=== PATIENT | female | born 1975 | race Caucasian/White ===

== ENCOUNTER 2019-06-17 19:17 | Emergency (ER) | payer BC, OTHER ==
[~2019-06-17] VITALS: Ht 149.9 cm; Wt 111.4 kg
[~2019-06-17 19:17] MED LIST: AMOX875T10 PO; COROTSUS OT; DOCU-169 PO; FERR325C PO; LIDOcaine 1% 30ml preserv. free vial ONE; MELA3TAB70 PO; METH500T PO; NAPR375T PO; VENL150C58 PO
[2019-06-17 19:40] VITALS: BP 171/85
== END 2019-06-17 22:29 | disposition home or self-care (01) ==
LOC: ER 19:18
DX: S90.211A Contusion of right great toe with damage to nail, initial encounter (principal); S91.201A Unspecified open wound of right great toe with damage to nail, initial encounter; J44.9 Chronic obstructive pulmonary disease, unspecified; G47.30 Sleep apnea, unspecified; G43.909 Migraine, unspecified, not intractable, without status migrainosus; F32.9 Major depressive disorder, single episode, unspecified; F15.90 Other stimulant use, unspecified, uncomplicated; F10.99 Alcohol use, unspecified with unspecified alcohol-induced disorder; Z86.14 Personal history of Methicillin resistant Staphylococcus aureus infection; Z90.49 Acquired absence of other specified parts of digestive tract; Z98.890 Other specified postprocedural states; Z79.899 Other long term (current) drug therapy; W22.8XXA Striking against or struck by other objects, initial encounter; Y93.89 Activity, other specified; Y92.89 Other specified places as the place of occurrence of the external cause; Y99.8 Other external cause status; Y90.9 Presence of alcohol in blood, level not specified
CPT/HCPCS: 11740; 99283; J2001; 99284

== ENCOUNTER 2020-08-11 00:05 | Emergency (ER) | payer BC ==
[~2020-08-11] VITALS: Ht 149.9 cm; Wt 118.0 kg
[~2020-08-11 00:05] MED LIST changes: +DICY10CA88 PO; -LIDOcaine 1% 30ml preserv. free vial ONE
[2020-08-11 00:30] VITALS: BP 125/74
[2020-08-11] MEDS ORDERED: acetaminophen 325mg tablet PO ONE (01:50)
== END 2020-08-11 02:49 | disposition home or self-care (01) ==
LOC: ER 00:06
DX: M25.562 Pain in left knee (principal); M25.561 Pain in right knee; G43.909 Migraine, unspecified, not intractable, without status migrainosus; J44.9 Chronic obstructive pulmonary disease, unspecified; F32.9 Major depressive disorder, single episode, unspecified; F15.90 Other stimulant use, unspecified, uncomplicated; Z86.14 Personal history of Methicillin resistant Staphylococcus aureus infection; Z90.49 Acquired absence of other specified parts of digestive tract; Z98.890 Other specified postprocedural states; Z72.89 Other problems related to lifestyle; Z79.2 Long term (current) use of antibiotics; Z79.899 Other long term (current) drug therapy
CPT/HCPCS: 73564; 99284

== ENCOUNTER 2020-12-23 13:51 | Emergency (ER) | payer BC ==
[~2020-12-23] VITALS: Ht 149.9 cm; Wt 118.0 kg
[2020-12-23 14:24] VITALS: BP 125/80
== END 2020-12-23 17:22 | disposition home or self-care (01) ==
LOC: ER 15:30
DX: R53.83 Other fatigue (principal); Z20.822 Contact with and (suspected) exposure to COVID-19; G43.909 Migraine, unspecified, not intractable, without status migrainosus; J44.9 Chronic obstructive pulmonary disease, unspecified; G47.39 Other sleep apnea; F15.90 Other stimulant use, unspecified, uncomplicated; Z86.14 Personal history of Methicillin resistant Staphylococcus aureus infection; Z72.89 Other problems related to lifestyle; Z90.49 Acquired absence of other specified parts of digestive tract; Z98.891 History of uterine scar from previous surgery; Z98.890 Other specified postprocedural states; Z79.899 Other long term (current) drug therapy; Z79.2 Long term (current) use of antibiotics
CPT/HCPCS: 87635; 99283; C9803

== ENCOUNTER 2022-11-03 17:14 | Emergency (ER) | payer BC, MEDICAID ==
[~2022-11-03] VITALS: Ht 149.9 cm; Wt 133.2 kg
[2022-11-03 17:51] LABS: BASOPHILS # (AUTO) 0.1 X10'3 (0-0.2); BASOPHILS % (AUTO) 0.6 % (0-1); EOSINOPHILS # (AUTO) 0.1 X10'3 (0-0.9); EOSINOPHILS % (AUTO) 1.1 % (0-6); HEMATOCRIT 42.3 % (35.0-45.0); HEMOGLOBIN 13.8 g/dl (12.0-16.0); LYMPHOCYTES % (AUTO) 30.9 % (21-51); MEAN CORPUSCULAR HEMOGLOBIN 28.1 PG (27.0-31.0); MEAN CORPUSCULAR HGB CONC 32.7 g/dL (33.0-36.5); MEAN CORPUSCULAR VOLUME 85.8 FL (78-98); MEAN PLATELET VOLUME 7.6 FL (7.4-10.4); MONOCYTES # (AUTO) 1.1 X10'3 (0-0.9); MONOCYTES % (AUTO) 8.3 % (2-12); NEUTROPHILS # (AUTO) 7.7 X10'3 (1.8-7.7); NEUTROPHILS % (AUTO) 59.1 % (42-75); PLATELET COUNT 332 X10'3 (140-440); RED BLOOD COUNT 4.92 X10'6 (4.20-5.60); RED CELL DISTRIBUTION WIDTH 14.7 % (11.5-14.5)
[2022-11-03 18:00] LABS: ALANINE AMINOTRANSFERASE 19 U/L (12-78); ALBUMIN 3.7 G/DL (3.4-5.0); ALBUMIN/GLOBULIN RATIO 0.9 (1.1-1.5); ALKALINE PHOSPHATASE 94 IU/L (46-116); ANION GAP 9 (8-16); ASPARTATE AMINO TRANSFERASE 13 U/L (10-37); BILIRUBIN,TOTAL 0.4 MG/DL (0.1-1.0); BLOOD UREA NITROGEN 10 MG/DL (7-18); CALCIUM 9.3 MG/DL (8.5-10.1); CHLORIDE 107 MMOL/L (99-107); CREATININE 0.83 MG/DL (0.40-0.90); GLUCOSE 127 MG/DL (70-104); LIPASE 67 U/L (73-393); POTASSIUM 4.1 MMOL/L (3.5-5.1); SODIUM 139 MMOL/L (135-145); TOTAL CARBON DIOXIDE 22.6 MMOL/L (24-32); TOTAL PROTEIN 7.6 G/DL (6.4-8.2); eGFR 74 ML/MIN
[2022-11-03] MEDS ORDERED: normal saline 1000ML IV soln IVB ONE (21:00)
[2022-11-03] MEDS ORDERED: morphine 4 MG/ML inj SYRINge IV PRN (21:00)
[2022-11-03] MEDS ORDERED: ondansetron/PF 4mg/2ml inj IV ONE (21:00)
[2022-11-03] MEDS ORDERED: ONDA4TAB12 PO (22:05)
[2022-11-03] MEDS ORDERED: SULF1TAB49 PO (22:05)
[2022-11-03] MEDS ORDERED: HYDR-3965 PO (22:05)
[2022-11-03 22:28] VITALS: BP 142/95
== END 2022-11-03 22:30 | disposition home or self-care (01) ==
LOC: ER 17:16
DX: K52.89 Other specified noninfective gastroenteritis and colitis (principal); J44.9 Chronic obstructive pulmonary disease, unspecified; G43.909 Migraine, unspecified, not intractable, without status migrainosus; F15.10 Other stimulant abuse, uncomplicated; Z86.14 Personal history of Methicillin resistant Staphylococcus aureus infection; Z79.899 Other long term (current) drug therapy; Z79.1 Long term (current) use of non-steroidal anti-inflammatories (NSAID)
CPT/HCPCS: 36415; 74176; 80053; 83690; 85025; 96361; 96374; 99285; J2270; J2405

== ENCOUNTER 2023-04-14 20:11 | Emergency (ER) | payer MEDICAID ==
[~2023-04-14] VITALS: Ht 149.9 cm; Wt 128.6 kg
[~2023-04-14 20:11] MED LIST changes: +HYDR-3965 PO; +ONDA4TAB12 PO
[2023-04-14 20:25] LABS: HEMATOCRIT 43.9 % (35.0-45.0); HEMOGLOBIN 14.5 g/dl (12.0-16.0); MEAN CORPUSCULAR HEMOGLOBIN 28.6 PG (27.0-31.0); MEAN CORPUSCULAR HGB CONC 33.1 g/dL (33.0-36.5); MEAN CORPUSCULAR VOLUME 86.4 FL (78-98); PLATELET COUNT 347 X10'3 (140-440); RED BLOOD COUNT 5.08 X10'6 (4.20-5.60); RED CELL DISTRIBUTION WIDTH 14.5 % (11.5-14.5); WHITE BLOOD COUNT 17.1 X10'3 (4.5-11.0)
[2023-04-14 20:26] LABS: BASOPHILS # (AUTO) 0.1 X10'3 (0-0.2); BASOPHILS % (AUTO) 0.5 % (0-1); EOSINOPHILS # (AUTO) 0.3 X10'3 (0-0.9); EOSINOPHILS % (AUTO) 1.5 % (0-6); LYMPHOCYTES # (AUTO) 5.1 X10'3 (1.1-4.8); LYMPHOCYTES % (AUTO) 29.7 % (21-51); MEAN PLATELET VOLUME 7.6 FL (7.4-10.4); MONOCYTES # (AUTO) 1.4 X10'3 (0-0.9); MONOCYTES % (AUTO) 8.4 % (2-12); NEUTROPHILS # (AUTO) 10.2 X10'3 (1.8-7.7); NEUTROPHILS % (AUTO) 59.9 % (42-75)
[2023-04-14 20:48] LABS: ALANINE AMINOTRANSFERASE 23 U/L (12-78); ALBUMIN 3.9 G/DL (3.4-5.0); ALKALINE PHOSPHATASE 100 IU/L (46-116); ANION GAP 11 (8-16); ASPARTATE AMINO TRANSFERASE 12 U/L (10-37); BILIRUBIN,TOTAL 0.5 MG/DL (0.1-1.0); BLOOD UREA NITROGEN 10 MG/DL (7-18); BUN/CREATININE RATIO 9.9 (10.0-20.0); CALCIUM 9.3 MG/DL (8.5-10.1); CHLORIDE 107 MMOL/L (99-107); CREATININE 1.01 MG/DL (0.40-0.90); GLUCOSE 84 MG/DL (70-104); POTASSIUM 3.3 MMOL/L (3.5-5.1); PRO BRAIN NATRIURETIC PEPTIDE < 30 PG/ML (0-125); SODIUM 143 MMOL/L (135-145); TOTAL CARBON DIOXIDE 25.1 MMOL/L (24-32); TOTAL PROTEIN 7.7 G/DL (6.4-8.2); eCRCL 48 ML/MIN; eGFR 59 ML/MIN
[2023-04-14 22:20] LABS: MAGNESIUM 2.3 MG/DL (1.5-2.4)
[2023-04-14 22:43] VITALS: BP 158/95; PULSE 119; RESP 16; TEMP 97.8; O2SAT 99
[2023-04-15] MEDS ORDERED: potassium Cl 20 mEq SR tablet PO STA (00:19)
== END 2023-04-15 00:40 | disposition home or self-care (01) ==
LOC: ER 20:12
DX: R00.2 Palpitations (principal); J44.9 Chronic obstructive pulmonary disease, unspecified; F32.A Depression, unspecified; F15.10 Other stimulant abuse, uncomplicated; G43.909 Migraine, unspecified, not intractable, without status migrainosus; Z79.899 Other long term (current) drug therapy
CPT/HCPCS: 36415; 71045; 80053; 83735; 83880; 84484; 85025; 93005; 99285

== ENCOUNTER 2023-06-12 18:15 | Emergency (ER) | payer MEDICAID ==
[~2023-06-12] VITALS: Ht 149.9 cm; Wt 126.1 kg
[2023-06-12] MEDS ORDERED: ketorolac trometh inj. 60 MG/2 ML VIAL IM ONE (20:20)
[2023-06-12] MEDS ORDERED: clindamycin 150mg capsule PO STA (20:23)
[2023-06-12] MEDS ORDERED: IBUP-1984 PO (20:38)
[2023-06-12] MEDS ORDERED: CLIN-97 PO (20:38)
[2023-06-12 21:39] VITALS: BP 134/78; PULSE 76; RESP 18; TEMP 97.9; O2SAT 98
== END 2023-06-12 21:42 | disposition home or self-care (01) ==
LOC: ER 18:15
DX: M10.072 Idiopathic gout, left ankle and foot (principal); L03.116 Cellulitis of left lower limb
CPT/HCPCS: 73630; 96372; 99283; J1885

== ENCOUNTER 2023-08-07 17:29 | Emergency (ER) | payer MEDICAID ==
[~2023-08-07] VITALS: Ht 149.9 cm; Wt 124.2 kg
[~2023-08-07 17:29] MED LIST changes: +CLIN-97 PO
[2023-08-07 17:32] VITALS: TEMP 98
[2023-08-07] MEDS: methylnaltrexone br 12mg/0.6ml inj***SubQ only SQ ONE (18:36)
[2023-08-07 18:54] LABS: URINE HCG NEGATIVE (NEG)
[2023-08-07 21:15] VITALS: BP 162/98; PULSE 101; RESP 16; O2SAT 95
== END 2023-08-07 21:17 | disposition home or self-care (01) ==
LOC: ER 17:29
DX: K59.00 Constipation, unspecified (principal); J44.9 Chronic obstructive pulmonary disease, unspecified; F32.A Depression, unspecified; Z90.49 Acquired absence of other specified parts of digestive tract; Z98.890 Other specified postprocedural states; F10.90 Alcohol use, unspecified, uncomplicated; F15.90 Other stimulant use, unspecified, uncomplicated; Z79.2 Long term (current) use of antibiotics; Z79.899 Other long term (current) drug therapy
CPT/HCPCS: 74176; 81025; 96372; 99285; J2212

== ENCOUNTER 2023-10-02 13:09 | Emergency (ER) | payer MEDICAID ==
[~2023-10-02] VITALS: Ht 149.9 cm; Wt 107.3 kg
[2023-10-02 13:34] LABS: BASOPHILS # (AUTO) 0.1 X10'3 (0-0.2); BASOPHILS % (AUTO) 0.6 % (0-1); EOSINOPHILS # (AUTO) 0.1 X10'3 (0-0.9); HEMATOCRIT 41.4 % (35.0-45.0); HEMOGLOBIN 13.5 g/dl (12.0-16.0); LYMPHOCYTES % (AUTO) 28.4 % (21-51); MEAN CORPUSCULAR HEMOGLOBIN 28.4 PG (27.0-31.0); MEAN CORPUSCULAR HGB CONC 32.6 g/dL (33.0-36.5); MEAN PLATELET VOLUME 7.8 FL (7.4-10.4); MONOCYTES # (AUTO) 0.8 X10'3 (0-0.9); MONOCYTES % (AUTO) 7.4 % (2-12); NEUTROPHILS # (AUTO) 6.7 X10'3 (1.8-7.7); NEUTROPHILS % (AUTO) 62.6 % (42-75); PLATELET COUNT 321 X10'3 (140-440); RED BLOOD COUNT 4.76 X10'6 (4.20-5.60); RED CELL DISTRIBUTION WIDTH 14.5 % (11.5-14.5); WHITE BLOOD COUNT 10.7 X10'3 (4.5-11.0)
[2023-10-02] MEDS ORDERED: HYDR-3972 PO (13:56)
[2023-10-02] MEDS ORDERED: BUSP15TA3 PO (13:56)
[2023-10-02] MEDS ORDERED: TIRZ10PE INJ (13:56)
[2023-10-02] MEDS ORDERED: SULF500T59 PO (13:56)
[2023-10-02] MEDS ORDERED: LORA10TA7 PO (13:56)
[2023-10-02] MEDS ORDERED: DOXY50CA2 PO (13:56)
[2023-10-02] MEDS ORDERED: CARI1.5C PO (13:56)
[2023-10-02] MEDS ORDERED: QUET25TA36 PO (13:56)
[2023-10-02] MEDS ORDERED: PROG100C11 PO (13:56)
[2023-10-02] MEDS ORDERED: CARV6.253 PO (13:56)
[2023-10-02] MEDS ORDERED: OMEP20CA16 PO (13:56)
[2023-10-02] MEDS ORDERED: TOP100T PO (13:56)
[2023-10-02] MEDS ORDERED: PROG200C11 PO (13:56)
[2023-10-02 14:05] LABS: ANION GAP 7 (8-16); BLOOD UREA NITROGEN 13 MG/DL (7-18); BUN/CREATININE RATIO 14.1 (10.0-20.0); CALCIUM 9.8 MG/DL (8.5-10.1); CHLORIDE 111 MMOL/L (99-107); CREATININE 0.92 MG/DL (0.40-0.90); GLUCOSE 106 MG/DL (70-104); POTASSIUM 3.8 MMOL/L (3.5-5.1); PRO BRAIN NATRIURETIC PEPTIDE 34 PG/ML (0-125); SODIUM 142 MMOL/L (135-145); TOTAL CARBON DIOXIDE 23.7 MMOL/L (24-32); eCRCL 52 ML/MIN; eGFR 66 ML/MIN
[2023-10-02] MEDS ORDERED: ketorolac trometh. 30mg/ml inj. IM ONE (16:30)
[2023-10-02] MEDS: LORazepam 0.5 MG tablet PO PRN (16:45)
[2023-10-02] MEDS: ketorolac tromethamine 15mg/ml inj. IM ONE (16:49)
[2023-10-02] MEDS: cloNIDine 0.1 mg tablet PO ONE ×2 (17:02→18:02)
[2023-10-02] MEDS: oxyCODONE IR 5mg (immed. release) tablet PO ONE (18:03)
[2023-10-02] MEDS ORDERED: CLON0.1T2 PO (18:05)
[2023-10-02 18:24] VITALS: BP 144/80; PULSE 91; RESP 17; TEMP 98.3; O2SAT 97
== END 2023-10-02 18:25 | disposition home or self-care (01) ==
LOC: ER 13:09
DX: M54.6 Pain in thoracic spine (principal); F41.9 Anxiety disorder, unspecified; G43.909 Migraine, unspecified, not intractable, without status migrainosus; J44.9 Chronic obstructive pulmonary disease, unspecified; F15.90 Other stimulant use, unspecified, uncomplicated; Z79.899 Other long term (current) drug therapy; Z79.1 Long term (current) use of non-steroidal anti-inflammatories (NSAID); Z79.2 Long term (current) use of antibiotics; Z90.49 Acquired absence of other specified parts of digestive tract; Z98.890 Other specified postprocedural states
CPT/HCPCS: 36415; 71045; 80048; 83880; 84484; 85025; 93005; 96372; 99285; J1885

== ENCOUNTER 2023-10-05 11:35 | Emergency (ER) | payer MEDICAID ==
[~2023-10-05] VITALS: Ht 149.9 cm; Wt 114.0 kg
[~2023-10-05 11:35] MED LIST changes: -AMOX875T10 PO; +BUSP15TA3 PO; +CARI1.5C PO; +CARV6.253 PO; -CLIN-97 PO; +CLON0.1T2 PO; -COROTSUS OT; -DICY10CA88 PO; -DOCU-169 PO; +DOXY50CA2 PO; -FERR325C PO; -HYDR-3965 PO; +HYDR-3972 PO; +LORA10TA7 PO; -MELA3TAB70 PO; -METH500T PO; -NAPR375T PO; +OMEP20CA16 PO; -ONDA4TAB12 PO; +PROG100C11 PO; +PROG200C11 PO; +QUET25TA36 PO; +SULF500T59 PO; +TIRZ10PE INJ; +TOP100T PO; -VENL150C58 PO
[2023-10-05 12:13] LABS: BASOPHILS % (AUTO) 0.4 % (0-1); EOSINOPHILS # (AUTO) 0.1 X10'3 (0-0.9); EOSINOPHILS % (AUTO) 0.6 % (0-6); HEMATOCRIT 39.6 % (35.0-45.0); HEMOGLOBIN 13.2 g/dl (12.0-16.0); LYMPHOCYTES # (AUTO) 2.9 X10'3 (1.1-4.8); LYMPHOCYTES % (AUTO) 23.9 % (21-51); MEAN CORPUSCULAR HEMOGLOBIN 28.6 PG (27.0-31.0); MEAN CORPUSCULAR HGB CONC 33.3 g/dL (33.0-36.5); MEAN CORPUSCULAR VOLUME 86.1 FL (78-98); MEAN PLATELET VOLUME 7.7 FL (7.4-10.4); MONOCYTES # (AUTO) 0.9 X10'3 (0-0.9); MONOCYTES % (AUTO) 7.7 % (2-12); NEUTROPHILS # (AUTO) 8.2 X10'3 (1.8-7.7); NEUTROPHILS % (AUTO) 67.4 % (42-75); PLATELET COUNT 294 X10'3 (140-440); RED CELL DISTRIBUTION WIDTH 14.2 % (11.5-14.5); WHITE BLOOD COUNT 12.1 X10'3 (4.5-11.0)
[2023-10-05 12:35] LABS: ANION GAP 12 (8-16); BLOOD UREA NITROGEN 12 MG/DL (7-18); BUN/CREATININE RATIO 13.8 (10.0-20.0); CALCIUM 9.3 MG/DL (8.5-10.1); CHLORIDE 109 MMOL/L (99-107); CREATININE 0.87 MG/DL (0.40-0.90); GLUCOSE 109 MG/DL (70-104); POTASSIUM 3.6 MMOL/L (3.5-5.1); PRO BRAIN NATRIURETIC PEPTIDE 32 PG/ML (0-125); SODIUM 144 MMOL/L (135-145); TOTAL CARBON DIOXIDE 23.3 MMOL/L (24-32); eGFR 70 ML/MIN
[2023-10-05] MEDS ORDERED: ketorolac trometh. 30mg/ml inj. IV ONE (12:55)
[2023-10-05] MEDS ORDERED: ketorolac tromethamine 15mg/ml inj. IV ONE (13:00)
[2023-10-05 13:13] LABS: D-DIMER 1.09 MG/L FEU (0-0.50)
[2023-10-05] MEDS: oxyCODONE/APAP 10/325mg tablet PO ONE (13:24)
[2023-10-05] MEDS: ketorolac tromethamine 15mg/ml inj. IM ONE (13:25)
[2023-10-05 13:37] VITALS: BP 137/75
[2023-10-05] MEDS ORDERED: iohexol 350MG/ML 100ml bottle IV ONE ×2 (13:41→13:42)
[2023-10-05 15:32] VITALS: PULSE 95; RESP 14; TEMP 98.6; O2SAT 96
== END 2023-10-05 15:35 | disposition home or self-care (01) ==
LOC: ER 11:35
DX: R07.89 Other chest pain (principal); Z79.899 Other long term (current) drug therapy; Z79.1 Long term (current) use of non-steroidal anti-inflammatories (NSAID); Z79.2 Long term (current) use of antibiotics
CPT/HCPCS: 36415; 71045; 71270; 80048; 83880; 84484; 85025; 85379; 93005; 96372; 99285; J1885; J3490; Q9967

== ENCOUNTER 2023-10-08 09:21 | Day surgery (SDC) | payer MEDICAID ==
[2023-10-07 15:06] LABS: BASOPHILS # (AUTO) 0.1 X10'3 (0-0.2); BASOPHILS % (AUTO) 0.5 % (0-1); EOSINOPHILS # (AUTO) 0.1 X10'3 (0-0.9); EOSINOPHILS % (AUTO) 0.4 % (0-6); HEMATOCRIT 42.1 % (35.0-45.0); HEMOGLOBIN 13.9 g/dl (12.0-16.0); LYMPHOCYTES # (AUTO) 4.5 X10'3 (1.1-4.8); LYMPHOCYTES % (AUTO) 31.5 % (21-51); MEAN CORPUSCULAR HEMOGLOBIN 28.2 PG (27.0-31.0); MEAN CORPUSCULAR HGB CONC 32.9 g/dL (33.0-36.5); MEAN CORPUSCULAR VOLUME 85.7 FL (78-98); MEAN PLATELET VOLUME 8.1 FL (7.4-10.4); MONOCYTES # (AUTO) 1.3 X10'3 (0-0.9); MONOCYTES % (AUTO) 9.1 % (2-12); NEUTROPHILS # (AUTO) 8.4 X10'3 (1.8-7.7); NEUTROPHILS % (AUTO) 58.5 % (42-75); PLATELET COUNT 333 X10'3 (140-440); RED BLOOD COUNT 4.92 X10'6 (4.20-5.60); RED CELL DISTRIBUTION WIDTH 14.1 % (11.5-14.5); WHITE BLOOD COUNT 14.4 X10'3 (4.5-11.0)
[2023-10-07 15:12] LABS: ALBUMIN 4.2 G/DL (3.4-5.0); ANION GAP 13 (8-16); BLOOD UREA NITROGEN 11 MG/DL (7-18); BUN/CREATININE RATIO 10.8 (10.0-20.0); CALCIUM 10.2 MG/DL (8.5-10.1); CHLORIDE 105 MMOL/L (99-107); CREATININE 1.02 MG/DL (0.40-0.90); GLUCOSE 87 MG/DL (70-104); POTASSIUM 3.4 MMOL/L (3.5-5.1); SODIUM 140 MMOL/L (135-145); TOTAL CARBON DIOXIDE 22.1 MMOL/L (24-32); eGFR 58 ML/MIN
[2023-10-07 15:16] LABS: APTT 24 SECONDS (22-32); PROTHROMBIN TIME 10.5 SECONDS (9.0-12.0)
[~2023-10-08] VITALS: Ht 149.9 cm; Wt 118.1 kg
[2023-10-08] VITALS (12 sets, daily range): BP systolic 119–179; BP diastolic 61–107; PULSE 74–92; RESP 12–15; TEMP 98.1; O2SAT 94–98
[2023-10-08] MEDS ORDERED: LIDOcaine 1% (10mg/ml) 2ml vial ONE ×2 (09:43→09:54)
[2023-10-08] MEDS ORDERED: verapamil 2.5 mg/ml inj IV ONE (09:43)
[2023-10-08] MEDS ORDERED: midazolam 1 mg/ML 2ml injection ONE ×2 (09:43→12:06)
[2023-10-08] MEDS ORDERED: fentaNYL/PF 50MCG/1 ML 2ML syringe ONE (09:44)
[2023-10-08] MEDS ORDERED: heparin 1,000unit/ml 10ml vial 10 ML ONE (09:44)
[2023-10-08] MEDS ORDERED: iohexol 300mg/ml 100ml inj. ONE (09:44)
[2023-10-08] MEDS ORDERED: iohexol 350 MG/ML 50ML vial IV ONE (09:44)
[2023-10-08] MEDS ORDERED: iohexol 350MG/ML 100ml bottle IV ONE (09:51)
[2023-10-08] MEDS ORDERED: nitroGLYCERIN 500mcg/5mL D5W 5 ML IV ONE (09:53)
[2023-10-08] MEDS ORDERED: TIRZ7.5P SQ (10:18)
[2023-10-08] MEDS ORDERED: VARE1TAB24 PO (10:18)
[2023-10-08] MEDS ORDERED: RIZA-5 PO (10:18)
[2023-10-08] MEDS ORDERED: FURO20TA4 PO (10:18)
[2023-10-08] MEDS ORDERED: POTA-188 PO (10:18)
[2023-10-08] MEDS ORDERED: DOXY50TA3 PO (10:18)
[2023-10-08] MEDS ORDERED: TIZA-205 PO (10:18)
[2023-10-08] MEDS ORDERED: SENN8.6T19 PO (10:20)
[2023-10-08] MEDS ORDERED: CLON-473 PO (10:20)
[2023-10-08] MEDS ORDERED: LIDOcaine 1% 30ml preserv. free vial ONE (11:02)
[2023-10-08] MEDS ORDERED: diphenhydrAMINE 50 mg/ml inj ONE (11:20)
[2023-10-08] MEDS ORDERED: heparin 1,000 UNITS/NS 500ml 500 ML ONE (11:29)
[2023-10-08 12:54] LABS: ISTAT HGB MIX 11.9 g/dl (12.0-16.0); ISTAT Hct MIX 35 %PCV (35-45); ISTAT O2 SATURATION MIX VENOUS 70 % (60-80); ISTAT SOURCE BLNK
[2023-10-08 12:54] LABS: ISTAT HGB MIX 11.9 g/dl (12.0-16.0); ISTAT Hct MIX 35 %PCV (35-45); ISTAT O2 SATURATION MIX VENOUS 94 % (60-80); ISTAT SOURCE BLNK
[2023-10-08] MEDS: HYDROcodone/acetaminophen 10/325mg tab PO PRN (13:32)
== END 2023-10-08 16:50 | disposition home or self-care (01) ==
LOC: SSTAY O 09:21
PROVIDERS: ATTEND Internal Medicine Cardiovascular Disease
DX: R94.39 Abnormal result of other cardiovascular function study (principal); I25.10 Atherosclerotic heart disease of native coronary artery without angina pectoris; E66.01 Morbid (severe) obesity due to excess calories; E03.9 Hypothyroidism, unspecified; E78.5 Hyperlipidemia, unspecified; F31.9 Bipolar disorder, unspecified; G47.30 Sleep apnea, unspecified; Z79.2 Long term (current) use of antibiotics; Z79.891 Long term (current) use of opiate analgesic; Z79.899 Other long term (current) drug therapy; Z90.49 Acquired absence of other specified parts of digestive tract; Z98.891 History of uterine scar from previous surgery; Z98.890 Other specified postprocedural states; Z68.43 Body mass index [BMI] 50.0-59.9, adult; Z82.49 Family history of ischemic heart disease and other diseases of the circulatory system
CPT/HCPCS: 36415; 76937; 80048; 82803; 85014; 85025; 85610; 85730; 93005; 93460; 99152; 99153; A6258; C1729; J1200; J1644; J2250; J3010; J3490; J7030; J7040; Q9967; A6402; A6449; C1725; C1751; C1769; C1894

== ENCOUNTER 2023-10-12 20:12 | Inpatient (IN) | payer MEDICAID ==
[~2023-10-12] VITALS: Ht 149.9 cm; Wt 118.2 kg
[~2023-10-12 20:12] MED LIST changes: -CARI1.5C PO; -CARV6.253 PO; +CLON-473 PO; -CLON0.1T2 PO; -DOXY50CA2 PO; +DOXY50TA3 PO; +FURO20TA4 PO; +POTA-188 PO; -PROG200C11 PO; -QUET25TA36 PO; +RIZA-5 PO; +SENN8.6T19 PO; -TIRZ10PE INJ; +TIRZ7.5P SQ; +TIZA-205 PO; +VARE1TAB24 PO
[2023-10-12 22:41] LABS: APTT 26 SECONDS (22-32); PROTHROMBIN TIME 10.9 SECONDS (9.0-12.0)
[2023-10-12 22:43] LABS: HCG SERUM QL NEGATIVE
[2023-10-12 22:44] LABS: ALANINE AMINOTRANSFERASE 34 U/L (12-78); ALKALINE PHOSPHATASE 94 IU/L (46-116); ANION GAP 11 (8-16); ASPARTATE AMINO TRANSFERASE 23 U/L (10-37); BILIRUBIN,TOTAL 0.9 MG/DL (0.1-1.0); BLOOD UREA NITROGEN 16 MG/DL (7-18); BUN/CREATININE RATIO 16.2 (10.0-20.0); CALCIUM 9.6 MG/DL (8.5-10.1); CHLORIDE 106 MMOL/L (99-107); CREATININE 0.99 MG/DL (0.40-0.90); GLUCOSE 86 MG/DL (70-104); POTASSIUM 3.6 MMOL/L (3.5-5.1); SODIUM 139 MMOL/L (135-145); TOTAL CARBON DIOXIDE 22.1 MMOL/L (24-32); TOTAL PROTEIN 8.1 G/DL (6.4-8.2); eCRCL 48 ML/MIN; eGFR 60 ML/MIN
[2023-10-12] MEDS ORDERED: iohexol 350MG/ML 100ml bottle IV ONE (22:49)
[2023-10-12 22:55] LABS: BASOPHILS # (AUTO) 0.1 X10'3 (0-0.2); BASOPHILS % (AUTO) 0.5 % (0-1); EOSINOPHILS # (AUTO) 0.3 X10'3 (0-0.9); EOSINOPHILS % (AUTO) 2.2 % (0-6); HEMATOCRIT 38.9 % (35.0-45.0); HEMOGLOBIN 12.9 g/dl (12.0-16.0); LYMPHOCYTES # (AUTO) 2.5 X10'3 (1.1-4.8); LYMPHOCYTES % (AUTO) 20.5 % (21-51); MEAN CORPUSCULAR HEMOGLOBIN 28.4 PG (27.0-31.0); MEAN CORPUSCULAR HGB CONC 33.1 g/dL (33.0-36.5); MEAN CORPUSCULAR VOLUME 85.9 FL (78-98); MEAN PLATELET VOLUME 8.4 FL (7.4-10.4); MONOCYTES # (AUTO) 1.2 X10'3 (0-0.9); MONOCYTES % (AUTO) 9.9 % (2-12); NEUTROPHILS # (AUTO) 8.1 X10'3 (1.8-7.7); NEUTROPHILS % (AUTO) 66.9 % (42-75); PLATELET COUNT 207 X10'3 (140-440); PRO BRAIN NATRIURETIC PEPTIDE 735 PG/ML (0-125); RED BLOOD COUNT 4.53 X10'6 (4.20-5.60); RED CELL DISTRIBUTION WIDTH 14.1 % (11.5-14.5); THYROID STIMULATING HORMONE 8.68 ulU/ml (0.34-4.50); WHITE BLOOD COUNT 12.1 X10'3 (4.5-11.0)
[2023-10-12] MEDS ORDERED: enoxaparin 100mg/ml syringe SUBCUT ONE (23:05)
[2023-10-12] MEDS ORDERED: magnesium 2GM in 50ml NS 50 ML IV PRN (23:10)
[2023-10-12] MEDS ORDERED: potassium Cl 20 mEq SR tablet PO PRN (23:10)
[2023-10-12] MEDS ORDERED: acetaminophen 325mg tablet PO PRN (23:10)
[2023-10-12] MEDS ORDERED: magnesium hydroxide 30ml (MOM) UD suspension PO PRN (23:10)
[2023-10-12] MEDS ORDERED: magnesium 4gm in 100ml NS 100 ML IV PRN (23:10)
[2023-10-12] MEDS ORDERED: magnesium Cl slow-release 64mg tablet PO PRN (23:10)
[2023-10-12] MEDS ORDERED: ondansetron/PF 4mg/2ml inj IV PRN (23:10)
[2023-10-12] MEDS ORDERED: ondansetron 4mg rapidly disintigrating tab PO PRN (23:10)
[2023-10-12] MEDS ORDERED: potassium Cl 40MEQ/1/2NS 520ml 520 ML IV PRN (23:10)
[2023-10-12] MEDS ORDERED: mag hydrox/Alum hydrox/simeth 30ml oral suspension PO PRN (23:10)
[2023-10-13] MEDS ORDERED: HYDROcodone/acetaminophen 10/325mg tab PO PRN (00:05)
[2023-10-13 00:09] LABS: D-DIMER 9.02 MG/L FEU (0-0.50)
[2023-10-13] MEDS ORDERED: heparin 10,000 units/1 ML INJ IV PRN ×2 (00:20→13:10)
[2023-10-13] MEDS ORDERED: heparin 10,000 units/1 ML INJ IV ONE ×2 (00:20→13:10)
[2023-10-13] MEDS ORDERED: RIZATRIPTAN BENZOATE 10 MG PO PRN (00:40)
[2023-10-13] MEDS ORDERED: iohexol 350MG/ML 100ml bottle IV ONE (00:42)
[2023-10-13] MEDS: cloNIDine 0.1 mg tablet PO SCH (01:05)
[2023-10-13] MEDS: HYDROcodone/acetaminophen 10/325mg tab PO PRN (01:05)
[2023-10-13] MEDS: heparin 10,000 units/1 ML INJ IV ONE (01:19)
[2023-10-13] MEDS: heparin 25,000 UNIT/250ml bag 250 ML IV PRN ×2 (01:22→22:34)
[2023-10-13] MEDS: MESSAGE TO NURSING IV ONE (01:23)
[2023-10-13 02:20] LABS: BILIRUBIN,URINE NEGATIVE (Neg); CLARITY,URINE CLEAR (Clear); COLOR,URINE YELLOW (Yellow); GLUCOSE, URINE NEGATIVE (Neg); KETONES,URINE TRACE mg/dl (Neg); LEUKOCYTE ESTERASE ,URINE NEGATIVE (Neg); NITRITES, URINE NEGATIVE (Neg); OCCULT BLOOD,URINE TRACE-INTACT (Neg); PH,URINE 6.5 (4.8-8.0); PROTEIN,URINE NEGATIVE (Neg); UROBILINOGEN,URINE 0.2 E.U/dL (0.2-1.0)
[2023-10-13 02:26] LABS: SQUAMOUS EPITHELIAL CELL,UR MANY /LPF (FEW); UA COLLECTION TYPE URINAL
[2023-10-13 02:28] LABS: BACTERIA,URINE FEW /HPF (Neg); RBC,URINE NONE SEEN /HPF (0-2)
[2023-10-13] MEDS: busPIRone 15mg tablet PO SCH (02:39)
[2023-10-13] MEDS: PERFLUTREN PROTEIN-A MICROSPHR (Optison) 0.22 MG/ML 3ML VIAL IV ONE (03:15)
[2023-10-13] MEDS ORDERED: enoxaparin 100mg/ml syringe SUBCUT SCH (08:00)
[2023-10-13] MEDS: K and/or MAG REPLACEMENT MC SCH (08:00)
[2023-10-13 08:49] VITALS: BP 156/81; PULSE 90; RESP 20; TEMP 98.5; O2SAT 95
[2023-10-13 09:55] LABS: BASOPHILS % (AUTO) 0.5 % (0-1); EOSINOPHILS # (AUTO) 0.3 X10'3 (0-0.9); EOSINOPHILS % (AUTO) 2.8 % (0-6); HEMATOCRIT 38.5 % (35.0-45.0); HEMOGLOBIN 12.7 g/dl (12.0-16.0); LYMPHOCYTES # (AUTO) 1.3 X10'3 (1.1-4.8); LYMPHOCYTES % (AUTO) 14.3 % (21-51); MEAN CORPUSCULAR HEMOGLOBIN 28.6 PG (27.0-31.0); MEAN CORPUSCULAR VOLUME 86.6 FL (78-98); MEAN PLATELET VOLUME 8.4 FL (7.4-10.4); MONOCYTES # (AUTO) 1.1 X10'3 (0-0.9); MONOCYTES % (AUTO) 12.2 % (2-12); NEUTROPHILS # (AUTO) 6.3 X10'3 (1.8-7.7); NEUTROPHILS % (AUTO) 70.2 % (42-75); PLATELET COUNT 199 X10'3 (140-440); RED BLOOD COUNT 4.45 X10'6 (4.20-5.60); RED CELL DISTRIBUTION WIDTH 14.4 % (11.5-14.5)
[2023-10-13 10:13] LABS: ALBUMIN 3.7 G/DL (3.4-5.0); ANION GAP 9 (8-16); BLOOD UREA NITROGEN 10 MG/DL (7-18); BUN/CREATININE RATIO 11.2 (10.0-20.0); CALCIUM 9.2 MG/DL (8.5-10.1); CHLORIDE 107 MMOL/L (99-107); CREATININE 0.89 MG/DL (0.40-0.90); GLUCOSE 97 MG/DL (70-104); POTASSIUM 3.9 MMOL/L (3.5-5.1); PRO BRAIN NATRIURETIC PEPTIDE 723 PG/ML (0-125); SODIUM 138 MMOL/L (135-145); TOTAL CARBON DIOXIDE 22.2 MMOL/L (24-32); eCRCL 54 ML/MIN; eGFR 68 ML/MIN
[2023-10-13] MEDS: MESSAGE TO NURSING IV NR ×2 (10:25→12:57)
[2023-10-13] MEDS: pantoprazole 40mg Tablet.DR PO SCH (11:02)
[2023-10-13] MEDS: docusate sod 100mg capsule PO SCH (11:03)
[2023-10-13] MEDS: loratadine 10mg tablet PO SCH (11:03)
[2023-10-13 11:08] VITALS: BP 133/80; PULSE 93; RESP 20; TEMP 97.3; O2SAT 99
[2023-10-13 16:48] VITALS: BP 156/72; PULSE 87; RESP 20; TEMP 98.2; O2SAT 96
[2023-10-13 18:00] VITALS: BP 151/76; PULSE 96; RESP 24; TEMP 98.9; O2SAT 97
[2023-10-13 20:00] VITALS: RESP 23; O2SAT 95
[2023-10-13] MEDS: VARENICLINE TARTRATE 1 MG PO SCH (20:00)
[2023-10-13] MEDS: sulfaSALAZINE 500 MG tablet PO SCH (20:31)
[2023-10-13] MEDS: topiramate 100mg tablet PO SCH (20:31)
[2023-10-13] MEDS: HYDROcodone/acetaminophen 5mg/325mg tablet PO PRN (20:36)
[2023-10-13 22:00] VITALS: BP 139/83; PULSE 90; RESP 23; TEMP 97.6; O2SAT 95
[2023-10-14] VITALS (7 sets, daily range): BP systolic 116–144; BP diastolic 75–79; PULSE 87–94; RESP 10–21; TEMP 97.8–98.5; O2SAT 94–96
[2023-10-14 02:08] LABS: BASOPHILS # (AUTO) 0.1 X10'3 (0-0.2); BASOPHILS % (AUTO) 0.7 % (0-1); EOSINOPHILS # (AUTO) 0.2 X10'3 (0-0.9); EOSINOPHILS % (AUTO) 2.9 % (0-6); HEMATOCRIT 37.3 % (35.0-45.0); HEMOGLOBIN 12.4 g/dl (12.0-16.0); LYMPHOCYTES # (AUTO) 2.8 X10'3 (1.1-4.8); LYMPHOCYTES % (AUTO) 34.1 % (21-51); MEAN CORPUSCULAR HEMOGLOBIN 28.6 PG (27.0-31.0); MEAN CORPUSCULAR HGB CONC 33.4 g/dL (33.0-36.5); MEAN CORPUSCULAR VOLUME 85.6 FL (78-98); MONOCYTES # (AUTO) 1.3 X10'3 (0-0.9); MONOCYTES % (AUTO) 15.7 % (2-12); NEUTROPHILS # (AUTO) 3.9 X10'3 (1.8-7.7); NEUTROPHILS % (AUTO) 46.6 % (42-75); PLATELET COUNT 205 X10'3 (140-440); RED BLOOD COUNT 4.36 X10'6 (4.20-5.60); RED CELL DISTRIBUTION WIDTH 14.6 % (11.5-14.5); WHITE BLOOD COUNT 8.3 X10'3 (4.5-11.0)
[2023-10-14 02:17] LABS: ALBUMIN 3.4 G/DL (3.4-5.0); ANION GAP 10 (8-16); BLOOD UREA NITROGEN 10 MG/DL (7-18); BUN/CREATININE RATIO 11.4 (10.0-20.0); CALCIUM 9.1 MG/DL (8.5-10.1); CHLORIDE 106 MMOL/L (99-107); CREATININE 0.88 MG/DL (0.40-0.90); GLUCOSE 91 MG/DL (70-104); POTASSIUM 3.6 MMOL/L (3.5-5.1); SODIUM 138 MMOL/L (135-145); TOTAL CARBON DIOXIDE 21.8 MMOL/L (24-32); eCRCL 54 ML/MIN; eGFR 69 ML/MIN
[2023-10-14] MEDS: MESSAGE TO NURSING IV ONE ×2 (02:38→21:05)
[2023-10-14 03:07] LABS: PLATELET ESTIMATE NORMAL; TOTAL CELLS COUNTED 100
[2023-10-14] MEDS: oxyCODONE/APAP 5-325mg tablet PO PRN (12:08)
[2023-10-14] MEDS: heparin 25,000 UNIT/250ml bag 250 ML IV PRN (12:45)
[2023-10-14] MEDS ORDERED: albuterol 2.5 MG/3 ML nebule NEB PRN (19:35)
[2023-10-14] MEDS: sennosides/docusate sodium tablet PO SCH (20:19)
[2023-10-14] MEDS: oxyCODONE/APAP 10/325mg tablet PO PRN (21:15)
[2023-10-14] MEDS ORDERED: calcium carbonate 500mg chew tablet PO PRN (21:30)
[2023-10-15] VITALS (8 sets, daily range): BP systolic 108–149; BP diastolic 68–81; PULSE 75–99; RESP 13–21; TEMP 97.8–99.8; O2SAT 93–98
[2023-10-15 03:30] LABS: BASOPHILS % (AUTO) 0.6 % (0-1); EOSINOPHILS # (AUTO) 0.2 X10'3 (0-0.9); EOSINOPHILS % (AUTO) 2.6 % (0-6); HEMATOCRIT 38.7 % (35.0-45.0); HEMOGLOBIN 12.7 g/dl (12.0-16.0); LYMPHOCYTES # (AUTO) 3.3 X10'3 (1.1-4.8); LYMPHOCYTES % (AUTO) 38.5 % (21-51); MEAN CORPUSCULAR HEMOGLOBIN 28.4 PG (27.0-31.0); MEAN CORPUSCULAR HGB CONC 32.7 g/dL (33.0-36.5); MEAN CORPUSCULAR VOLUME 86.8 FL (78-98); MONOCYTES # (AUTO) 1.2 X10'3 (0-0.9); MONOCYTES % (AUTO) 13.4 % (2-12); NEUTROPHILS # (AUTO) 3.9 X10'3 (1.8-7.7); NEUTROPHILS % (AUTO) 44.9 % (42-75); PLATELET COUNT 221 X10'3 (140-440); RED BLOOD COUNT 4.46 X10'6 (4.20-5.60); RED CELL DISTRIBUTION WIDTH 14.3 % (11.5-14.5); WHITE BLOOD COUNT 8.6 X10'3 (4.5-11.0)
[2023-10-15 03:44] LABS: ALBUMIN 3.3 G/DL (3.4-5.0); ANION GAP 12 (8-16); BLOOD UREA NITROGEN 10 MG/DL (7-18); BUN/CREATININE RATIO 12.7 (10.0-20.0); CALCIUM 9.4 MG/DL (8.5-10.1); CHLORIDE 106 MMOL/L (99-107); CREATININE 0.79 MG/DL (0.40-0.90); GLUCOSE 91 MG/DL (70-104); POTASSIUM 3.4 MMOL/L (3.5-5.1); SODIUM 138 MMOL/L (135-145); TOTAL CARBON DIOXIDE 20.3 MMOL/L (24-32); eCRCL 61 ML/MIN; eGFR 78 ML/MIN
[2023-10-15] MEDS: potassium Cl 20 mEq SR tablet PO PRN (04:04)
[2023-10-15] MEDS: MESSAGE TO NURSING IV ONE (04:18)
[2023-10-15] MEDS: topiramate 100mg tablet PO SCH (08:06)
[2023-10-15] MEDS: apixaban 5mg tablet PO SCH (08:07)
[2023-10-15] MEDS: MESSAGE TO NURSING IV NR ×2 (10:07)
[2023-10-15] MEDS: oxymetazoline 15 ML nasal spray NS PRN ×2 (11:49→20:04)
[2023-10-15 20:51] LABS: ABG BASE EXCESS -2.7 mmol/L (-2.0-2.0); ABG HCO3 19.9 mmol/L (22.0-26.0); ABG OXYGEN SATURATION 96.3 % (94-97); ABG PCO2 (T) 28.6 mmHg (32.0-45.0); ABG PO2 (T) 79.7 mmHg (75.0-100.0); ALLEN'S TEST POSITIVE; FCOHb 0.3 % (0.0-3.9); FHHb 3.7 % (0.0-5.0); FMetHb 0.3 % (0.0-1.5); FO2Hb 95.7 % (94-97); MODE ROOM AIR; TOTAL HEMOGLOBIN 13.6 G/dl (12.0-16.0)
[2023-10-15 21:06] LABS: PRO BRAIN NATRIURETIC PEPTIDE 139 PG/ML (0-125)
[2023-10-16 07:05] LABS: BASOPHILS % (AUTO) 0.5 % (0-1); EOSINOPHILS # (AUTO) 0.3 X10'3 (0-0.9); EOSINOPHILS % (AUTO) 3.2 % (0-6); HEMATOCRIT 38.1 % (35.0-45.0); HEMOGLOBIN 12.7 g/dl (12.0-16.0); LYMPHOCYTES # (AUTO) 3.2 X10'3 (1.1-4.8); LYMPHOCYTES % (AUTO) 39.2 % (21-51); MEAN CORPUSCULAR HEMOGLOBIN 28.4 PG (27.0-31.0); MEAN CORPUSCULAR HGB CONC 33.3 g/dL (33.0-36.5); MEAN CORPUSCULAR VOLUME 85.4 FL (78-98); MONOCYTES % (AUTO) 11.5 % (2-12); NEUTROPHILS # (AUTO) 3.8 X10'3 (1.8-7.7); NEUTROPHILS % (AUTO) 45.6 % (42-75); PLATELET COUNT 229 X10'3 (140-440); RED BLOOD COUNT 4.46 X10'6 (4.20-5.60); RED CELL DISTRIBUTION WIDTH 14.3 % (11.5-14.5); WHITE BLOOD COUNT 8.3 X10'3 (4.5-11.0)
[2023-10-16 07:11] VITALS: BP 147/84; PULSE 78; RESP 16; TEMP 97.8; O2SAT 98
[2023-10-16 07:21] LABS: ALBUMIN 3.3 G/DL (3.4-5.0); ANION GAP 9 (8-16); BLOOD UREA NITROGEN 11 MG/DL (7-18); BUN/CREATININE RATIO 13.8 (10.0-20.0); CHLORIDE 107 MMOL/L (99-107); GLUCOSE 92 MG/DL (70-104); SODIUM 139 MMOL/L (135-145); TOTAL CARBON DIOXIDE 22.7 MMOL/L (24-32); eCRCL 60 ML/MIN; eGFR 77 ML/MIN
[2023-10-16 08:00] VITALS: RESP 16; O2SAT 98
[2023-10-16 11:00] VITALS: BP 112/70; PULSE 81; RESP 14; TEMP 97.8; O2SAT 100
[2023-10-16] MEDS ORDERED: APIX5TAB3 PO (14:16)
[2023-10-21] MEDS ORDERED: apixaban 5mg tablet PO SCH (08:00)
== END 2023-10-16 16:29 | disposition home or self-care (01) | DRG 134 ==
LOC: ER 20:13 → ED HOLD 23:16 → PCU 3S 10-13 08:26
PROVIDERS: ADMIT Internal Medicine Critical Care Medicine; ATTEND Family Medicine
PROC: B32T1ZZ Computerized Tomography (CT Scan) of Left Pulmonary Artery using Low Osmolar Contrast (ICD-10-PCS; principal; 2023-10-13)
PROC: B3201ZZ Computerized Tomography (CT Scan) of Thoracic Aorta using Low Osmolar Contrast (ICD-10-PCS; 2023-10-13)
PROC: B32S1ZZ Computerized Tomography (CT Scan) of Right Pulmonary Artery using Low Osmolar Contrast (ICD-10-PCS; 2023-10-13)
DX: I26.92 Saddle embolus of pulmonary artery without acute cor pulmonale (principal); Z68.43 Body mass index [BMI] 50.0-59.9, adult; I82.401 Acute embolism and thrombosis of unspecified deep veins of right lower extremity; J44.9 Chronic obstructive pulmonary disease, unspecified; R73.03 Prediabetes; F32.A Depression, unspecified; F41.9 Anxiety disorder, unspecified; G47.33 Obstructive sleep apnea (adult) (pediatric); E66.9 Obesity, unspecified; G43.909 Migraine, unspecified, not intractable, without status migrainosus; K51.90 Ulcerative colitis, unspecified, without complications; F15.90 Other stimulant use, unspecified, uncomplicated; Z88.8 Allergy status to other drugs, medicaments and biological substances; Z79.899 Other long term (current) drug therapy; Z90.49 Acquired absence of other specified parts of digestive tract; Z87.891 Personal history of nicotine dependence; Z98.891 History of uterine scar from previous surgery
CPT/HCPCS: 36415; 36600; 71045; 71275; 80048; 80053; 81001; 82803; 83605; 83880; 84439; 84443; 84484; 84703; 85007; 85018; 85025; 85379; 85610; 85730; 87081; 93005; 93306; 93971; 99291; A4615; G0378; J1644; J3490; Q9967

== ENCOUNTER 2024-01-27 17:17 | Emergency (ER) | payer MEDICAID ==
[~2024-01-27] VITALS: Ht 149.9 cm; Wt 103.7 kg
[~2024-01-27 17:17] MED LIST changes: +APIX5TAB3 PO; -DOXY50TA3 PO; -FURO20TA4 PO; -POTA-188 PO
[2024-01-27 21:06] VITALS: TEMP 97.8
[2024-01-27 21:42] LABS: BASOPHILS # (AUTO) 0.1 X10'3 (0-0.2); BASOPHILS % (AUTO) 0.5 % (0-1); EOSINOPHILS # (AUTO) 0.1 X10'3 (0-0.9); EOSINOPHILS % (AUTO) 0.7 % (0-6); HEMATOCRIT 44.9 % (35.0-45.0); HEMOGLOBIN 14.9 g/dl (12.0-16.0); LYMPHOCYTES % (AUTO) 17.9 % (21-51); MEAN CORPUSCULAR HEMOGLOBIN 28.9 PG (27.0-31.0); MEAN CORPUSCULAR HGB CONC 33.2 g/dL (33.0-36.5); MEAN CORPUSCULAR VOLUME 86.9 FL (78-98); MEAN PLATELET VOLUME 7.9 FL (7.4-10.4); MONOCYTES # (AUTO) 1.1 X10'3 (0-0.9); MONOCYTES % (AUTO) 6.3 % (2-12); NEUTROPHILS # (AUTO) 12.5 X10'3 (1.8-7.7); NEUTROPHILS % (AUTO) 74.6 % (42-75); PLATELET COUNT 409 X10'3 (140-440); RED BLOOD COUNT 5.16 X10'6 (4.20-5.60); RED CELL DISTRIBUTION WIDTH 14.7 % (11.5-14.5); WHITE BLOOD COUNT 16.7 X10'3 (4.5-11.0)
[2024-01-27 21:47] LABS: ALANINE AMINOTRANSFERASE 20 U/L (12-78); ALBUMIN/GLOBULIN RATIO 0.8 (1.1-1.5); ALKALINE PHOSPHATASE 118 IU/L (46-116); ANION GAP 13 (8-16); ASPARTATE AMINO TRANSFERASE 16 U/L (10-37); BILIRUBIN,TOTAL 0.7 MG/DL (0.1-1.0); BLOOD UREA NITROGEN 11 MG/DL (7-18); CHLORIDE 108 MMOL/L (99-107); CREATININE 0.92 MG/DL (0.40-0.90); GLUCOSE 78 MG/DL (70-104); POTASSIUM 3.5 MMOL/L (3.5-5.1); SODIUM 141 MMOL/L (135-145); TOTAL CARBON DIOXIDE 20.3 MMOL/L (24-32); TOTAL PROTEIN 8.8 G/DL (6.4-8.2); eCRCL 52 ML/MIN; eGFR 66 ML/MIN
[2024-01-27] MEDS: ondansetron/PF 4mg/2ml inj IV ONE (22:27)
[2024-01-27] MEDS: normal saline 1000ml 1,000 ML IV ONE ×2 (22:28)
[2024-01-27] MEDS: LORazepam 2 mg/ml vial IV ONE (22:28)
[2024-01-27] MEDS: metoclopramide 5 mg/ml inj IV ONE (22:31)
--- NOTE | 2024-01-27 22:45 | NUR ---
CALLED POISON CONTROL FOR 2MG MOUNYELENA SQ 24 HRS PRIOR TO TRIAGE SPOKE WITH BHUPENDRA FROM POISON CONTROL Addendum: 01/27/24 at 2258 by GABY NOTE CONTINUED BHUPENDRA FROM POISON CONTROL RECOMMENDED ELECTROLYTE MONITORING AND GI S/S SUCH CRAMPING N,V,D AND PATIENT CAN BE DISCHARGED AFTER ELECTRLOYTES ARE STABLE WITH PERSCRIPTION FOR GI SUPPORT FOR POSSIBLE [address] CHANDRA CRANE
[2024-01-28] MEDS ORDERED: ONDA-245 PO (00:45)
[2024-01-28] MEDS: ketorolac trometh 15mg/ml vial 15 MG/ML ML IV ONE (00:52)
[2024-01-28] MEDS: proCHLORperazine 10 MG/2 ml inj IV ONE (00:52)
[2024-01-28 00:55] VITALS: BP 143/99; PULSE 107; O2SAT 97
[2024-01-28 01:09] VITALS: RESP 18
== END 2024-01-28 01:13 | disposition home or self-care (01) ==
LOC: ER 17:17
DX: R11.2 Nausea with vomiting, unspecified (principal); G43.909 Migraine, unspecified, not intractable, without status migrainosus; J44.9 Chronic obstructive pulmonary disease, unspecified; F32.A Depression, unspecified; Z79.899 Other long term (current) drug therapy; Z79.82 Long term (current) use of aspirin; Z90.49 Acquired absence of other specified parts of digestive tract; Z98.890 Other specified postprocedural states
CPT/HCPCS: 36415; 80053; 84145; 85025; 93005; 96361; 96374; 96375; 99285; J0780; J1885; J2060; J2405; J2765; J7030

== ENCOUNTER 2024-07-01 19:44 | Emergency (ER) | payer MEDICAID ==
[~2024-07-01] VITALS: Ht 149.9 cm; Wt 102.4 kg
[~2024-07-01 19:44] MED LIST changes: +ONDA-245 PO
[2024-07-01 20:34] LABS: BASOPHILS # (AUTO) 0.1 X10'3 (0-0.2); BASOPHILS % (AUTO) 0.9 % (0-1); EOSINOPHILS # (AUTO) 0.2 X10'3 (0-0.9); EOSINOPHILS % (AUTO) 1.3 % (0-6); HEMATOCRIT 39.8 % (35.0-45.0); HEMOGLOBIN 13.4 g/dl (12.0-16.0); LYMPHOCYTES # (AUTO) 5.1 X10'3 (1.1-4.8); LYMPHOCYTES % (AUTO) 39.8 % (21-51); MEAN CORPUSCULAR HEMOGLOBIN 29.6 PG (27.0-31.0); MEAN CORPUSCULAR HGB CONC 33.7 g/dL (33.0-36.5); MEAN CORPUSCULAR VOLUME 87.7 FL (78-98); MONOCYTES # (AUTO) 1.4 X10'3 (0-0.9); MONOCYTES % (AUTO) 10.8 % (2-12); NEUTROPHILS % (AUTO) 47.2 % (42-75); PLATELET COUNT 336 X10'3 (140-440); RED BLOOD COUNT 4.54 X10'6 (4.20-5.60); RED CELL DISTRIBUTION WIDTH 14.1 % (11.5-14.5); WHITE BLOOD COUNT 12.8 X10'3 (4.5-11.0)
[2024-07-01 20:45] LABS: ALANINE AMINOTRANSFERASE 22 U/L (12-78); ALBUMIN 3.7 G/DL (3.4-5.0); ALBUMIN/GLOBULIN RATIO 0.9 (1.1-1.5); ALKALINE PHOSPHATASE 86 IU/L (46-116); ANION GAP 6 (8-16); ASPARTATE AMINO TRANSFERASE 11 U/L (10-37); BILIRUBIN,TOTAL 0.4 MG/DL (0.1-1.0); BLOOD UREA NITROGEN 12 MG/DL (7-18); BUN/CREATININE RATIO 11.2 (10.0-20.0); CALCIUM 8.8 MG/DL (8.5-10.1); CHLORIDE 108 MMOL/L (99-107); CREATININE 1.07 MG/DL (0.40-0.90); GLUCOSE 70 MG/DL (70-104); SODIUM 138 MMOL/L (135-145); TOTAL CARBON DIOXIDE 23.7 MMOL/L (24-32); eCRCL 45 ML/MIN; eGFR 55 ML/MIN
[2024-07-01 20:53] LABS: PRO BRAIN NATRIURETIC PEPTIDE 42 PG/ML (0-125)
[2024-07-01 20:56] LABS: POTASSIUM 3.8 MMOL/L (3.5-5.1)
[2024-07-01 21:40] LABS: URINE HCG NEGATIVE (NEG)
[2024-07-01] MEDS ORDERED: iohexol 350MG/ML 100ml bottle IV ONE (21:56)
[2024-07-01 22:16] LABS: BILIRUBIN,URINE NEGATIVE (Neg); CLARITY,URINE CLEAR (Clear); COLOR,URINE YELLOW (Yellow); GLUCOSE, URINE NEGATIVE (Neg); KETONES,URINE NEGATIVE (Neg); LEUKOCYTE ESTERASE ,URINE NEGATIVE (Neg); NITRITES, URINE NEGATIVE (Neg); OCCULT BLOOD,URINE NEGATIVE (Neg); PROTEIN,URINE NEGATIVE (Neg); UROBILINOGEN,URINE 0.2 E.U/dL (0.2-1.0)
[2024-07-01 22:20] LABS: UA COLLECTION TYPE CLN CATCH MIDSTREAM
[2024-07-01 23:54] VITALS: BP 135/78; PULSE 84; RESP 14; TEMP 96.1; O2SAT 98
== END 2024-07-01 23:59 | disposition home or self-care (01) ==
LOC: ER 19:45
DX: R06.02 Shortness of breath (principal); J44.9 Chronic obstructive pulmonary disease, unspecified; G47.30 Sleep apnea, unspecified; F32.A Depression, unspecified; G43.909 Migraine, unspecified, not intractable, without status migrainosus; Z90.49 Acquired absence of other specified parts of digestive tract; Z86.711 Personal history of pulmonary embolism; Z79.899 Other long term (current) drug therapy
CPT/HCPCS: 36415; 71045; 71275; 80053; 81003; 81025; 83880; 84484; 85025; 93005; 99285; Q9967

== ENCOUNTER 2024-09-14 00:39 | Emergency (ER) | payer MEDICAID ==
[~2024-09-14] VITALS: Ht 149.9 cm; Wt 113.6 kg
[2024-09-14] MEDS: triamcinolone acetonide 40mg/ml inj IM ONE (01:24)
[2024-09-14] MEDS: dexamethasone 4mg/ml inj IM ONE (01:24)
[2024-09-14 01:33] VITALS: BP 123/84; PULSE 90; RESP 20; TEMP 98.6; O2SAT 98
== END 2024-09-14 01:36 | disposition home or self-care (01) ==
LOC: ER 00:40
DX: L29.9 Pruritus, unspecified (principal); G47.30 Sleep apnea, unspecified; J44.9 Chronic obstructive pulmonary disease, unspecified; Z90.49 Acquired absence of other specified parts of digestive tract
CPT/HCPCS: 96372; 99284; J1100; J3301

== ENCOUNTER 2024-09-15 20:32 | Emergency (ER) | payer MEDICAID ==
[~2024-09-15] VITALS: Ht 149.9 cm; Wt 115.5 kg
[2024-09-15 21:36] LABS: BASOPHILS # (AUTO) 0.1 X10'3 (0-0.2); BASOPHILS % (AUTO) 0.6 % (0-1); EOSINOPHILS # (AUTO) 0.1 X10'3 (0-0.9); EOSINOPHILS % (AUTO) 0.4 % (0-6); HEMATOCRIT 44.8 % (35.0-45.0); HEMOGLOBIN 14.9 g/dl (12.0-16.0); LYMPHOCYTES # (AUTO) 3.5 X10'3 (1.1-4.8); LYMPHOCYTES % (AUTO) 21.5 % (21-51); MEAN CORPUSCULAR HEMOGLOBIN 29.1 PG (27.0-31.0); MEAN CORPUSCULAR HGB CONC 33.4 g/dL (33.0-36.5); MEAN CORPUSCULAR VOLUME 87.3 FL (78-98); MEAN PLATELET VOLUME 7.2 FL (7.4-10.4); MONOCYTES # (AUTO) 1.6 X10'3 (0-0.9); MONOCYTES % (AUTO) 9.7 % (2-12); NEUTROPHILS % (AUTO) 67.8 % (42-75); PLATELET COUNT 349 X10'3 (140-440); RED BLOOD COUNT 5.13 X10'6 (4.20-5.60); RED CELL DISTRIBUTION WIDTH 13.8 % (11.5-14.5); WHITE BLOOD COUNT 16.2 X10'3 (4.5-11.0)
[2024-09-15 21:40] LABS: ALANINE AMINOTRANSFERASE 18 U/L (12-78); ALBUMIN 4.1 G/DL (3.4-5.0); ALBUMIN/GLOBULIN RATIO 1.1 (1.1-1.5); ALKALINE PHOSPHATASE 86 IU/L (46-116); ANION GAP 9 (8-16); ASPARTATE AMINO TRANSFERASE 14 U/L (10-37); BILIRUBIN,TOTAL 0.5 MG/DL (0.1-1.0); BLOOD UREA NITROGEN 16 MG/DL (7-18); BUN/CREATININE RATIO 13.1 (10.0-20.0); CHLORIDE 106 MMOL/L (99-107); CREATININE 1.22 MG/DL (0.40-0.90); ETHANOL < 10 MG/DL (<10); GLUCOSE 102 MG/DL (70-104); SALICYLATE 2.2 MG/DL (4.0-20.0); SODIUM 139 MMOL/L (135-145); TOTAL CARBON DIOXIDE 24.1 MMOL/L (24-32); TOTAL PROTEIN 7.7 G/DL (6.4-8.2); eCRCL 39 ML/MIN; eGFR 47 ML/MIN
[2024-09-15 21:53] LABS: ACETAMINOPHEN < 2.0 UG/ML (10-30)
[2024-09-15 22:25] LABS: THYROID STIMULATING HORMONE 3.25 ulU/ml (0.34-4.50)
[2024-09-15 23:11] LABS: BILIRUBIN,URINE NEGATIVE (Neg); CLARITY,URINE CLEAR (Clear); COLOR,URINE YELLOW (Yellow); GLUCOSE, URINE NEGATIVE (Neg); KETONES,URINE NEGATIVE (Neg); LEUKOCYTE ESTERASE ,URINE NEGATIVE (Neg); NITRITES, URINE NEGATIVE (Neg); OCCULT BLOOD,URINE NEGATIVE (Neg); PROTEIN,URINE NEGATIVE (Neg); UROBILINOGEN,URINE 0.2 E.U/dL (0.2-1.0)
[2024-09-15 23:17] LABS: UA COLLECTION TYPE CLN CATCH MIDSTREAM
[2024-09-15 23:20] LABS: URINE HCG NEGATIVE (NEG)
[2024-09-15 23:32] LABS: URINE AMPHETAMINE SCREEN NEGATIVE (Neg); URINE BARBITUATE SCREEN NEGATIVE (Neg); URINE BENZODIAZEPINES SCREEN NEGATIVE (Neg); URINE CANNABINOID SCREEN NEGATIVE (Neg); URINE COCAINE SCREEN NEGATIVE (Neg); URINE METHADONE SCREEN NEGATIVE (Neg); URINE OPIATE SCREEN NEGATIVE (Neg); URINE PHENCYCLIDINE SCREEN NEGATIVE (Neg)
[2024-09-16] MEDS: acetaminophen 325mg tablet PO ONE (00:03)
[2024-09-16] MEDS: cloNIDine 0.1 mg tablet PO ONE (01:17)
[2024-09-16] MEDS ORDERED: CHOL100025 PO (01:29)
[2024-09-16] MEDS ORDERED: FLUV50TA9 PO (01:29)
[2024-09-16] MEDS ORDERED: BUPR100T13 PO (01:29)
[2024-09-16] MEDS ORDERED: FLUV150C2 PO (01:29)
[2024-09-16] MEDS ORDERED: MAGN400C PO (01:29)
[2024-09-16] MEDS ORDERED: BUPR300T53 PO (03:57)
[2024-09-16] MEDS ORDERED: BUPROPION HCL PO SCH (08:00)
[2024-09-16] MEDS ORDERED: apixaban 5mg tablet PO SCH (08:00)
[2024-09-16] MEDS: topiramate 25mg tablet PO SCH (08:37)
[2024-09-16] MEDS: fluvoxamine 25 MG tablet PO SCH (08:37)
[2024-09-16] MEDS: pantoprazole 40mg Tablet.DR PO SCH (08:38)
[2024-09-16] MEDS: sennosides 8.6mg tablet PO SCH (08:38)
[2024-09-16] MEDS: busPIRone 15mg tablet PO SCH (08:38)
[2024-09-16] MEDS: BUPROPION HCL 150MG XL 24 HR 150 MG TAB PO SCH (08:38)
[2024-09-16] MEDS: cloNIDine 0.1 mg tablet PO SCH (08:38)
[2024-09-16] MEDS: ondansetron 4mg rapidly disintigrating tab PO SCH (08:38)
[2024-09-16 11:56] VITALS: BP 122/68; PULSE 96; RESP 16; TEMP 98; O2SAT 99
[2024-09-16] MEDS ORDERED: fluvoxamine 25 MG tablet PO SCH (21:00)
[2024-09-16] MEDS ORDERED: tizanidine 4mg tablet PO SCH (21:00)
[2024-09-16] MEDS ORDERED: progesterone, micronized 100mg capsule PO SCH (21:00)
== END 2024-09-16 12:11 | disposition still patient (30) ==
LOC: ER 20:33
DX: T43.592A Poisoning by other antipsychotics and neuroleptics, intentional self-harm, initial encounter (principal); L29.89 Other pruritus; J44.9 Chronic obstructive pulmonary disease, unspecified; G43.909 Migraine, unspecified, not intractable, without status migrainosus; F32.A Depression, unspecified; G47.30 Sleep apnea, unspecified; Z90.49 Acquired absence of other specified parts of digestive tract; Z88.8 Allergy status to other drugs, medicaments and biological substances; Z79.899 Other long term (current) drug therapy; Z98.890 Other specified postprocedural states; Z20.822 Contact with and (suspected) exposure to COVID-19; Y92.89 Other specified places as the place of occurrence of the external cause
CPT/HCPCS: 36415; 80053; 80305; 80320; 80329; 81003; 81025; 84443; 85025; 87811; 93005; 99285

== ENCOUNTER 2024-10-05 09:52 | Outpatient (CLI) | payer MEDICAID ==
[~2024-10-05 09:52] MED LIST changes: -APIX5TAB3 PO; +BUPR300T53 PO; +CHOL100025 PO; +FLUV150C2 PO; +FLUV50TA9 PO; +MAGN400C PO; -RIZA-5 PO; -TIRZ7.5P SQ; -VARE1TAB24 PO
--- NOTE | 2024-10-05 12:29 | VASCULAR REPORT ---
Bilateral lower extremity venous duplex Clinical History: Pain Comparison: VASC VL VENOUS on DOS: 10/12/23 Technique: Duplex Doppler evaluation of the deep venous systems of both lower extremities from the common femora l veins to the popliteal veins including color Doppler and spectral/pulsed waveform analysis was perf ormed. Findings: RIGHT SIDE: The common femoral vein demonstrates appropriate compressibility and waveform variability. There is compressibility/patency of the great saphenous vein at the proximal thigh. The femoral vein demonstrates appropriate compressibility and waveform variability. The deep femoral vein demonstrates appropriate compressibility and waveform variability. The popliteal vein demonstrates minimal residual chronic nonocclusive thrombus.. There is normal compressibility at the tibioperoneal trunk. LEFT SIDE: The common femoral vein demonstrates appropriate compressibility and waveform variability. There is compressibility/patency of the great saphenous vein at the proximal thigh. The femoral vein demonstrates appropriate compressibility and waveform variability. The deep femoral vein demonstrates appropriate compressibility and waveform variability. The popliteal vein demonstrates appropriate compressibility and waveform variability. There is normal compressibility at the tibioperoneal trunk. Impression: No acute right or left femoropopliteal venous thrombosis. Minimal residual chronic occlusive thrombus is present in the right popliteal vein.
== END 2024-10-05 23:59 | disposition home or self-care (01) ==
LOC: VAS 09:52
PROVIDERS: ATTEND Physician Assistant
DX: M79.661 Pain in right lower leg (principal)
CPT/HCPCS: 93970

== ENCOUNTER 2025-02-20 19:36 | Emergency (ER) | payer MEDICAID ==
[~2025-02-20] VITALS: Ht 149.9 cm; Wt 111.8 kg
[2025-02-20 19:53] VITALS: TEMP 96.8
--- NOTE | 2025-02-20 20:10 | ELECTROCARDIOGRAPH REPORT ---
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 Nixon Merrill Measurements Intervals [place] Rate: 66 P: 13 [place]: 151 QRS: 1 QRSD: 97 T: 45 QT: 448 QTc: 470 Interpretive Statements Sinus rhythm Baseline wander in lead(s) V3,V4,V5,V6 Electronically Signed On 02-24-2025 21:45:[address] Nixon Merrill Please click the below link to view image of tracing.
[2025-02-20 20:21] LABS: MEAN PLATELET VOLUME 7.2 FL (7.4-10.4); RED CELL DISTRIBUTION WIDTH 14.0 % (11.5-14.5)
[2025-02-20 20:48] LABS: CREATININE 1.00 MG/DL (0.40-0.90); PRO BRAIN NATRIURETIC PEPTIDE 69 PG/ML (0-125); TOTAL CARBON DIOXIDE 27.5 MMOL/L (24-32); eCRCL 47 ML/MIN; eGFR 59 ML/MIN
--- NOTE | 2025-02-20 21:11 | RADIOLOGY REPORT ---
EXAM: DI CHEST,SINGLE VIEW CLINICAL HISTORY: CP TECHNIQUE: Single PA view of the chest WID: COMPARISON: CT CTA CHEST PE W/ IV CONTRAST on DOS: 07/01/24 FINDINGS: Lines and tubes: None Chest: The heart size and pulmonary vasculature is within normal limits. No pleural effusion, pneumothorax, or consolidation. The osseous structures are grossly intact. IMPRESSION: 1. No acute cardiopulmonary abnormality.
--- NOTE | 2025-02-20 21:14 | Physician Documentation ---
History of Present Illness ~ Chief Complaint: Leg Pain Stated Complaint: R LEG PAIN Time Seen by MD: 20:40 Primary Medical Doctor: [facility] [place]; [place] Mode of Arrival: POV HPI 49-year-old female, presenting with multiple complaints including right leg pain and swelling She reports a history of DVT and PE in the past, and supposed to be on anticoagulation. However over the past week or 2 she has been feeling ill including significant abdominal pain, nausea and diarrhea. She has not been able to take all of her medications regularly including her blood thinners. She reports increased pain and swelling to her right calf. It is very painful. She also reports right-sided abdominal pain associated with cramping and diarrhea. She reports a history of inflammatory bowel disease, and she does have blood in her stool. She does report subjective fevers and chills. No current shortness of breath. No vomiting blood. Tetanus witin 5 years: Yes Medication Reconciliation Allergies: Coded Allergies: semaglutide (Verified Allergy, Unknown, 02/20/25) Scheduled Bupropion HCl (Wellbutrin Xl), 1 TAB PO QAM, (Reported) Buspirone HCl (Buspirone HCl), 1 TAB PO BID, (Reported) Cholecalciferol (Vitamin D), 5,000 MG PO DAILY, (Reported) Clonidine HCl (Clonidine HCl), 1 TAB PO BID, (Reported) Fluvoxamine Maleate (Fluvoxamine Maleate), 1 TAB PO DAILY, (Reported) Fluvoxamine Maleate (Fluvoxamine Maleate), 1 CAP PO HS, (Reported) Loratadine (Loratadine), 1 TAB PO DAILY, (Reported) Magnesium Oxide (Magnesium), 200 MG PO HS, (Reported) Omeprazole (Omeprazole), 1 CAP PO DAILY, (Reported) Ondansetron 8mg ODT (Ondansetron Odt), 1 TAB PO Q6H Progesterone,Micronized (Progesterone), 2 CAP PO HS, (Reported) Sennosides (Senna Laxative), 1 TAB PO TID, (Reported) Sulfasalazine* (Azulfidine*), 1 TAB PO DAILY, (Reported) Tizanidine Hcl (Zanaflex), 8 MG PO HS, (Reported) Topiramate (Topamax), 50 MG PO DAILY, (Reported) Scheduled PRN Hydrocodone Bit/Acetaminophen (Hydrocodon-Acetaminophn 10-325 tablet), 1 TAB PO QID PRN for pain, (Reported) Promethazine HCl (Promethazine HCl), 1 TAB PO Q6H PRN PRN for nausea/vomiting Past Medical History Past Medical History: Migraine, *PULMONARY*, COPD, Sleep Apnea, *GI/HEPATOBILIARY*, MRSA Abscess, Depression Past Surgical History: cholecystectomy, , orthopedic surgeries Patient History: FH: depression FH: heart disease FH: stroke Alcohol Use: Sober Drug Use: none Lives with: Family Lives In: Home Occupation: employed Review of Systems Constitutional: Reports: fever Cardiovascular: Reports: chest pain Gastrointestinal: Reports: abdominal pain, nausea, vomiting, rectal bleeding Physical Exam Vital Signs: Temperature: 96.8, Source: Temporal, Heart Rate: 84, Respiratory Rate: 17, BP: 223/120, Pulse Oximetry: 98, Weight: 111.800 Physical Exam General: This is an uncomfortable and tired appearing young female, not in distress HEENT: Atraumatic, oropharynx is moist Heart: Regular rate and rhythm, normal-appearing peripheral perfusion Lungs: Diminished breath sounds bilateral, normal work of breathing, normal oxygen saturation on room air Abdomen: Soft, mildly distended abdomen, tender to palpation in the right mid abdomen, without rebound or guarding Extremities: Warm and well-perfused Right lower extremity has increased size and swelling compared to the left, with tenderness on palpation of the posterior calf Neuro: Alert and oriented Psychiatric: Calm and cooperative with exam Progress Results/Orders Results/Orders Orders - PALOMA BRO MD Chest,Single View (02/20/25 20:18) Monitor (02/20/25 19:56) Saline Lock (02/20/25 19:56) Oxygen (02/20/25 19:56) Vl Venous (02/20/25 21:10) Completed Orders - PALOMA BRO MD Chest,Single View (02/20/25 20:18) Cbc/Diff (02/20/25 19:56) BMP (02/20/25 19:56) PBNP (02/20/25 19:56) Electrocardiogram (02/20/25 19:56) Hs Troponin I W Calculations (02/20/25 19:56) Hs Troponin I W Calculations (02/20/25 21:56) Hs Troponin I W Calculations (02/20/25 22:56) Vl Venous (02/20/25 21:10) Normal Saline 1000ml (0.9% Sodium Chlori (02/20/25 21:10) Morphine 4mg/Ml Inj. (Morphine Inj.) (02/20/25 21:10) Prochlorperazine Inj (Compazine Inj) (02/20/25 21:10) Hcg Serum Ql (02/20/25 22:43) Iohexol 350mg/Ml 100ml (Omnipaque 350mg/ (02/20/25 22:51) Medications Received in ER Medications (Trade) Dose Ordered Sig/[place] Route PRN Reason Start Time Stop Time Status Last Admin Dose Admin Sodium Chloride 1,000 ml @ 1,000 mls/hr ONCE ONCE IV 02/20/25 21:10 02/20/25 22:09 DC 02/20/25 21:19 1,000 MLS/HR (morphine inj.) 4 mg ONCE ONCE IV 02/20/25 21:10 02/20/25 21:12 DC 02/20/25 21:20 4 MG (Compazine inj) 10 mg ONCE ONCE IV 02/20/25 21:10 02/20/25 21:12 DC 02/20/25 21:19 10 MG Vital Signs 02/20/25 02/20/25 02/20/25 02/20/25 19:53 20:25 21:20 22:20 Temp 96.8 Pulse 84 Resp 15 17 17 17 B/P (MAP) 223/120 Pulse Ox 98 02/21/25 00:13 Pulse 101 Resp 18 B/P (MAP) 158/89 (112) Pulse Ox 94 O2 Flow Rate 0 Laboratory Tests Test 02/20/25 20:13 02/20/25 21:40 02/20/25 22:58 White Blood Count 13.4 H Red Blood Count 4.80 Hemoglobin 13.4 Hematocrit 41.1 Mean Corpuscular Volume 85.6 Mean Corpuscular Hemoglobin 27.9 Mean Corpuscular Hemoglobin Concent 32.6 L Red Cell Distribution Width 14.0 Platelet Count 317 Mean Platelet Volume 7.2 L Neutrophils (%) (Auto) 51.1 Lymphocytes (%) (Auto) 36.6 Monocytes (%) (Auto) 10.6 Eosinophils (%) (Auto) 1.1 Basophils (%) (Auto) 0.6 Neutrophils # (Auto) 6.9 Lymphocytes # (Auto) 4.9 H Monocytes # (Auto) 1.4 H Eosinophils # (Auto) 0.1 Basophils # (Auto) 0.1 CBC Comment Sodium Level 144 Potassium Level 3.7 Chloride Level 108 H Carbon Dioxide Level 27.5 Anion Gap 9 Blood Urea Nitrogen 8 Creatinine 1.00 H Estimated GFR/1.73 m2 59 BUN/Creatinine Ratio 8.0 L Glucose Level 105 H Calcium Level 8.9 Troponin I High Sensitivity 6 7 9 Pro-B-Type Natriuretic Peptide 69 Albumin 3.7 Chemistry Comments Troponin I High Sens Percent Delta 16 28 Troponin I Hi Sens Absolute Change 1 2 Human Chorionic Gonadotropin, Qual Negative EKG/XRAY/CT/US/VASC/MRI Chest X-Ray : Additional Comments I personally interpreted the x-ray, and it shows: No acute process including no focal consolidation, pneumothorax or edema Vascular : Vascular Study: lower extremity venous Impression Per the ergonomics technician, there are remnants of chronic DVT but no acute DVT Medical Decision Making Additional Comment The patient presents with multiple symptoms including diarrhea, leg pain, chest discomfort. On exam she does have swelling to her right calf. DVT ultrasound is negative. There was no overlying erythema or other findings to suggest cellulitis or dangerous infection. Initially the plan was for a CTA chest also rule out PE, but on re-evaluation after treatment, the patient had no chest pain or shortness of breath. She stated that she felt the symptoms were related to anxiety. Given that she does not have a DVT and is already partially on anticoagulation, it seems reasonable for her to restart her normal anticoagulation dose and forego the CTA. Her nausea and other symptoms all improved after nausea medicine and IV fluids. She then requested to go home. Laboratory testing is reassuring. No evidence of dangerous dehydration, electrolyte derangement, or ACS. She will be discharged home with nausea medication and ongoing symptomatic treatment. Return precautions given. Departure Time of Disposition: 00:12 Disposition: 01 HOME / SELF CARE / HOMELESS Impression: Primary Impression: Leg swelling Additional Impression: Diarrhea Condition: Improved Discharge Instructions: Diarrhea, Adult Referrals: NO PRIMARY CARE PROVIDER (PCP) Prescriptions Promethazine HCl (Promethazine HCl) 25 Mg Tablet 1 TAB PO Q6H PRN PRN for nausea/vomiting for 7 Days, #28 TAB 1 Refill Prov: PALOMA BRO MD 02/21/25 Education Educated: Patient Educated regarding: diagnosis, treatment, need for follow up Signature Scribe Signature: na Attestation: PALOMA Bursn MD Feb 20, 2025 21:14
[2025-02-20] MEDS: normal saline 1000ml 1,000 ML IV ONE (21:19)
[2025-02-20] MEDS: morphine 4 MG/ML inj SYRINge IV ONE (21:20)
--- NOTE | 2025-02-20 22:54 | VASCULAR REPORT ---
CLINICAL HISTORY: Right lower extremity pain and swelling TECHNIQUE: Color and duplex doppler imaging of the right lower extremity veins was performed. Vessel compression if possible was also performed. WID: COMPARISON: VASC VL VENOUS on DOS: 10/05/24 FINDINGS: Contralateral left common femoral vein: Normal flow and phasicity. Right common femoral vein: Normal compressibility and flow. Right femoral vein: Normal compressibility and flow. Right popliteal vein: Chronic nonocclusive linear thrombus in the right popliteal vein. Posterior tibial veins are patent. IMPRESSION: 1. Chronic nonocclusive linear DVT in the right popliteal vein. 2. No acute DVT in the right lower extremity.
[2025-02-20 23:57] LABS: HCG SERUM QL NEGATIVE
[2025-02-21 00:13] VITALS: BP 158/89; PULSE 101; RESP 18; O2SAT 94
[2025-02-21] MEDS ORDERED: PROM25TA14 PO (00:13)
== END 2025-02-21 00:21 | disposition home or self-care (01) ==
LOC: ER 19:37
DX: M79.89 Other specified soft tissue disorders (principal); R19.7 Diarrhea, unspecified; R10.9 Unspecified abdominal pain; R06.02 Shortness of breath; G47.30 Sleep apnea, unspecified; F32.A Depression, unspecified; J44.9 Chronic obstructive pulmonary disease, unspecified; F10.90 Alcohol use, unspecified, uncomplicated; Z86.14 Personal history of Methicillin resistant Staphylococcus aureus infection; Z88.8 Allergy status to other drugs, medicaments and biological substances; Z90.49 Acquired absence of other specified parts of digestive tract; Y90.9 Presence of alcohol in blood, level not specified
CPT/HCPCS: 36415; 71045; 80048; 83880; 84484; 84703; 85025; 93005; 93971; 96361; 96374; 96375; 99285; J0780; J2270; J7030; Q9967; A6258

== ENCOUNTER 2025-02-28 00:49 | Emergency (ER) | payer MEDICAID ==
[~2025-02-28 00:49] MED LIST changes: +PROM25TA14 PO
--- NOTE | 2025-02-28 01:45 | RADIOLOGY REPORT ---
CHEST RADIOGRAPH Indication: CP Technique: 1 view Comparison: DI CHEST,SINGLE VIEW on DOS: 02/20/25, DI CHEST,SINGLE VIEW on DOS: 07/01/24, DI CHEST,SINGLE VIEW on DOS: 10/15/23, DI CHEST,SINGLE VIEW on DOS: 10/12/23, DI CHEST,SINGLE VIEW on DOS: 10/05/23 FINDINGS: Lines and Tubes: None. Lungs/Pleura: No focal consolidation, pleural effusion or pneumothorax. Cardiomediastinum: Unremarkable. Other: No acute osseous abnormality. IMPRESSION: 1. No acute cardiopulmonary abnormality.
[2025-02-28 01:50] LABS: CREATININE 0.88 MG/DL (0.40-0.90); PRO BRAIN NATRIURETIC PEPTIDE 346 PG/ML (0-125); TOTAL CARBON DIOXIDE 25.9 MMOL/L (24-32); eGFR 69 ML/MIN
[2025-02-28 02:21] VITALS: TEMP 98.7
[2025-02-28 03:27] LABS: MEAN PLATELET VOLUME 7.7 FL (7.4-10.4); RED CELL DISTRIBUTION WIDTH 13.9 % (11.5-14.5)
--- NOTE | 2025-02-28 05:29 | ELECTROCARDIOGRAPH REPORT ---
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 Nils Fierro Measurements Intervals [place] Rate: 75 P: 26 [place]: 141 QRS: -5 QRSD: 90 T: 46 QT: 399 QTc: 446 Interpretive Statements Sinus rhythm Electronically Signed On 02-28-2025 5:36:[address] Nils Fierro Please click the below link to view image of tracing.
[2025-02-28] MEDS: hydrALAZINE 20mg/ml inj. IV ONE (05:53)
--- NOTE | 2025-02-28 06:38 | Physician Documentation ---
Addendum CHIEF COMPLAINT/HPI: The patient is a 49-year-old female with a history of morbid obesity, anxiety, mental illness, tachycardia and remote cholecystectomy greater than 20 years ago who developed right upper quadrant pain beginning about a week ago. She came here today with hypertension which he says is new for her. She has been using GLP one agonist medication on and off over the past 1-2 years. REVIEW OF SYSTEMS: Constitutional: Denies chills, fatigue, fever, weight gain or weight loss. HEENT: Denies hearing loss, sinus pressure or visual changes. Respiratory: Denies cough, shortness of breath or wheezing. Cardiovascular: Denies chest pain, pain while walking (claudication), edema or palpitations. Gastrointestinal: Right upper quadrant abdominal pain. Genitourinary: Denies painful urination (dysuria), excessive amount of urine (polyuria) or urinary frequency. Metabolic/Endocrine: Denies cold intolerance, heat intolerance, excessive thirst (polydipsia) or excessive hunger (polyphagia). Neurological: Denies dizziness, extremity numbness, extremity weakness, headaches, seizures or tremors. Psychiatric: Denies anxiety or depression. Integumentary: Denies breast discharge, breast lump, hives, mole change(s), huma h or skin lesion. Musculoskeletal: Denies back pain, joint pain, joint swelling or neck pain. Hematologic: Denies easily bleeding, easily bruises, lymphedema or issues with blood clots. Immunologic: Denies food allergies or seasonal allergies. PHYSICAL EXAMINATION: Vitals and nursing note reviewed. Constitutional: General: Patient is awake, alert, oriented x 4 in no acute distress and well appearing. Speech is clear and lucid. Appearance: Morbidly obese. Patient is not ill-appearing, toxic-appearing or diaphoretic. HENT: Head: Normocephalic and atraumatic. Mouth/Throat: Mouth: Mucous membranes are moist. Pharynx: Oropharynx is clear. Eyes: General: No scleral icterus. Extraocular Movements: Extraocular movements intact. Pupils: Pupils are equal, round, and reactive to light. Neck: Supple, no Kernig or Brudzinski sign. Cardiovascular: Rate and Rhythm: Normal rate and regular rhythm. Heart sounds: No murmur heard. Pulmonary: Effort: No respiratory distress. Breath sounds: No wheezing, rhonchi or rales. Abdominal: General: There is no distension. Palpations: There is no fluid wave, hepatomegaly or mass. Tenderness: There is no abdominal tenderness. There is no guarding. Musculoskeletal: General: No swelling or deformity. Skin: Coloration: Skin is not jaundiced. Findings: No erythema or rash. Neurological: Mental Status: Patient is alert. MEDICAL DECISION MAKING: This 49-year-old female presents with right-sided chest wall pain and hypertension. The hypertension was initially treated with hydralazine and I will be starting her on amlodipine with close follow-up. Laboratory data are reassuring (serial troponins, LFTs and amylase). Chest x-rays negative for acute findings. I do not suspect ischemia. Departure Disposition: HOME / SELF CARE / HOMELESS Impression: Primary Impression: Nonspecific chest pain Additional Impression: Benign hypertension Condition: Stable Discharge Instructions: Hypertension, Adult, [id number] Additional Instructions: It is important to see your doctor or primary care provider. Emergency care may be incomplete without proper follow-up. Symptoms sometimes change or new symptoms might arise after you leave the emergency department. It is important that you call your doctor if you become worse in any way, or return to the emergency department. You are strongly urged to follow-up with your physician to assure complete and thorough care. Please call your doctor's office today, and informed them that you were seen in the emergency department, and that you need to be seen immediately for close follow-up. If you do not have a primary care doctor we encourage you to proactively seek a local physician for close follow-up. Consider local clinics, [facility], or [place] [facility] Prior to discharge we spoke at length concerning symptoms that would merit reevaluation, but please return to the emergency department for any symptoms that are concerning to you, and we will be happy to continue your evaluation and treatment. Please note you can always return to the emergency department if you are having difficulty coordinating close follow-up. If medications were prescribed, you should fill them at your local pharmacy immediately and take only as prescribed. Bring your new medications to your doctors follow-up visit to discuss any changes that would be necessary. Please check [facility] for any results you did not receive in the Emergency Department: often we are unable to get all your tests back before you leave, and these tests need to be reviewed by your PCP and yourself. You can also call Medical Records if you are unable to access the internet to see [place]. Return to the emergency department immediately for worsening chest pain, difficulty breathing, sweating, or other concerning emergent symptoms. Prescriptions Ibuprofen (Ibuprofen) 600 Mg Tablet 1 TAB PO Q6H PRN for pain, #30 TAB Prov: SLIME DALE MD 02/28/25 Amlodipine Besylate (Norvasc) 5 Mg Tablet 1 TAB PO DAILY for 30 Days, #30 TAB 0 Refills Prov: SLIME DALE MD 02/28/25 Education Educated: Patient Educated regarding: diagnosis, treatment SLIME DALE MD Feb 28, 2025 06:38
[2025-02-28 07:12] LABS: LEUKOCYTE ESTERASE ,URINE NEGATIVE (Neg); NITRITES, URINE NEGATIVE (Neg); OCCULT BLOOD,URINE NEGATIVE (Neg)
[2025-02-28 07:16] LABS: UA COLLECTION TYPE CLN CATCH MIDSTREAM
[2025-02-28 08:24] LABS: CREATININE 0.68 MG/DL (0.40-0.90); TOTAL CARBON DIOXIDE 24.2 MMOL/L (24-32); eGFR > 90 ML/MIN
[2025-02-28] MEDS ORDERED: AMLO5TAB5 PO (09:15)
[2025-02-28] MEDS ORDERED: IBUP600T52 PO (09:16)
[2025-02-28] MEDS: ketorolac trometh 30MG/ML vial 30 MG/ML VIAL IM ONE (09:38)
[2025-02-28 09:42] VITALS: BP 157/77; PULSE 89; RESP 14; O2SAT 98
== END 2025-02-28 09:44 | disposition home or self-care (01) ==
LOC: ER 00:50
DX: R07.89 Other chest pain (principal); I10 Essential (primary) hypertension; Z90.49 Acquired absence of other specified parts of digestive tract
CPT/HCPCS: 36415; 71045; 80048; 80053; 81003; 83690; 83880; 84484; 85025; 93005; 96372; 99285; J1885

== ENCOUNTER 2025-04-04 08:24 | Day surgery (SDC) | payer MEDICAID ==
[2025-04-04] VITALS (8 sets, daily range): BP systolic 128–161; BP diastolic 77–96; PULSE 70–83; RESP 12–18; TEMP 97.5; O2SAT 96–100
[~2025-04-04] VITALS: Ht 149.9 cm; Wt 124.5 kg
[~2025-04-04 08:24] MED LIST changes: +APIX5TAB3 PO; -BUPR300T53 PO; -BUSP15TA3 PO; -CHOL100025 PO; +DICL100G59 TOP; +DOCUMENT DATE & TIME OF BETA-BLOCKER PO ONE; +ESTR1PAT30 TD; -FLUV150C2 PO; -FLUV50TA9 PO; -MAGN400C PO; -ONDA-245 PO; +PREG50CA65 PO; +PROP10TA10 PO; +RAME8TAB24 PO; +RIME75TA PO; +RIZA10TA28 PO; -SENN8.6T19 PO; +TIRZ5PEN SQ; -TOP100T PO; +ringers solution, lacted 1,000 ML IV SCH; +simethicone 40mg/0.6ml oral drops 15ml PO ONE
[2025-04-04] MEDS ORDERED: fentaNYL/PF 50MCG/1 ML 2ML syringe ONE ×2 (10:23→10:24)
[2025-04-04] MEDS ORDERED: MIDAZolam 1 MG/ML 5ML VIAL ONE (10:25)
--- NOTE | 2025-04-05 12:29 | PATHOLOGY REPORT ---
[facility] [address] [place] [address] SURGICAL PATHOLOGY REPORT CaseNumber: [id number] Surgeon:Milana Bhat M.D. CLINICAL INFORMATION CLINICAL INFORMATION: Ulcerative colitis. Bloody mucoid diarrhea. DIAGNOSIS DIAGNOSIS: A.COLON, RIGHT SIDE, BIOPSIES X 2 - OCCASIONAL SMALL BENIGN LYMPHOID AGGREGATES - NO SIGNIFICANT INFLAMMATION OR LYMPHOCYTIC COLITIS - NO INCREASED SUBMUCOSAL COLLAGEN DEPOSITION - NO INFECTIOUS ELEMENTS ARE IDENTIFIED - NO DYSPLASTIC OR NEOPLASTIC FEATURES DIAGNOSIS: B.SIGMOID COLON AND RECTUM, BIOPSIES X 3 - AREAS WITH MILDLY INCREASED STROMAL CHRONIC INFLAMMATORY CELLS - NEUTROPHILS ARE NOT INCREASED - NO CRYPT ABSCESSES ARE IDENTIFIED - NO INCREASED SUBMUCOSAL COLLAGEN DEPOSITION - NO INFECTIOUS ELEMENTS ARE IDENTIFIED - NO DYSPLASTIC OR NEOPLASTIC FEATURES MICROSCOPIC DESCRIPTION A. COLON, RIGHT SIDE, BIOPSIES X 2 MICROSCOPIC DESCRIPTION: Reviewed is a single H&E-stained slide showing sections on levels of two fragments of colonic mucosa. There are occasional small benign lymphoid aggregates. However, there is no significant inflammation or features of lymphocytic colitis. There is no increased submucosal collagen deposition. No infectious elements are identified. There are no dysplastic or neoplastic features. B. SIGMOID COLON AND RECTUM, BIOPSIES X 3 MICROSCOPIC DESCRIPTION: Reviewed is a single H&E-stained slide showing sections on levels of three small fragments of colonic mucosa. There are areas associated with mildly increased numbers of stromal chronic inflammatory cells associated with mildly reactive stromal and glandular changes. There is no significant acute inflammation. No crypt abscesses are identified. No features of lymphocytic colitis are identified. There is no increased submucosal collagen deposition. No infectious elements are identified. There are no dysplastic or neoplastic features. GROSS DESCRIPTION A. COLON, RIGHT SIDE, BIOPSIES X 2 GROSS DESCRIPTION: Received in a container of formalin labeled with the patient's name, number, and "RT colon BX" are 2 pieces of matias tissue 0.3 and 0.4 x 0.2 x 0.1 cm. The specimen is entirely submitted as A1. The time at which the specimen was removed was 1049. The time at which the specimen was placed in formalin was 1049. B. SIGMOID COLON AND RECTUM, BIOPSIES X 3 GROSS DESCRIPTION: Received in a container of formalin labeled with the patient's name, number, and "sigmoid BX" are 3 pieces of matias tissue 0.2-0.4 x 0.2 x 0.1 cm. The specimen is entirely submitted as B1. The time at which the specimen was removed was 1052. The time at which the specimen was placed in formalin was 1052. Electronically signed by: Scotty Maddox M.D. 04/05/2025 11:50:00 AM
== END 2025-04-04 11:47 | disposition home or self-care (01) ==
LOC: GI LAB 08:24
PROVIDERS: ATTEND Internal Medicine Gastroenterology
DX: K51.90 Ulcerative colitis, unspecified, without complications (principal); E66.9 Obesity, unspecified; F41.9 Anxiety disorder, unspecified; F32.A Depression, unspecified; G43.909 Migraine, unspecified, not intractable, without status migrainosus; G47.30 Sleep apnea, unspecified; I10 Essential (primary) hypertension; R19.7 Diarrhea, unspecified; Z98.890 Other specified postprocedural states; Z90.49 Acquired absence of other specified parts of digestive tract; Z82.3 Family history of stroke; Z82.49 Family history of ischemic heart disease and other diseases of the circulatory system; Z81.8 Family history of other mental and behavioral disorders
CPT/HCPCS: 45380; 82948; 99152; J2250; J3010; J7120; Z7512; A4620

== ENCOUNTER 2025-04-20 15:14 | Outpatient (CLI) | payer MEDICAID ==
[~2025-04-20] VITALS: Ht 147.3 cm; Wt 125.2 kg
[~2025-04-20 15:14] MED LIST changes: -DOCUMENT DATE & TIME OF BETA-BLOCKER PO ONE; -ringers solution, lacted 1,000 ML IV SCH; -simethicone 40mg/0.6ml oral drops 15ml PO ONE
[2025-04-20 16:22] VITALS: PULSE 78; RESP 16; O2SAT 96
[2025-04-20] MEDS: albuterol 2.5 MG/3 ML nebule NEB ONE (16:34)
[2025-04-20 16:35] VITALS: PULSE 81; RESP 16
--- NOTE | 2025-04-27 13:01 | PROCEDURE NOTE - Respiratory ---
Procedure Note-Respiratory Providers to CC Copies To 1: JEREMIAH NORMAN PA-C Procedure Name: This is a spirometry study dated April 20, 2025. The spirometry study was performed both before and after inhaled bronchodilator. Spirometry measurements: Both the forced vital capacity and the FEV1 are in the normal range. The FEV1 ratio is normal. The flow rates are normal. After inhaled bronchodilator was administered, some of the flow rates show very slight improvement. Overall conclusion: Normal spirometry study. We have no previous studies for comparison. ISELA ARGUELLO MD Apr 27, 2025 13:01
== END 2025-04-20 23:59 | disposition home or self-care (01) ==
LOC: RT 15:14
PROVIDERS: ATTEND Physician Assistant
DX: R06.02 Shortness of breath (principal)
CPT/HCPCS: 94060; 94760